=== PATIENT | male | born 1975 | race Caucasian/White ===

== ENCOUNTER 2017-06-03 18:56 | Emergency (ER) | payer OTHER ==
[~2017-06-03] VITALS: Ht 185.4 cm; Wt 107.3 kg
[2017-06-03 19:09] VITALS: TEMP 36.4; Ht 185.4 cm; Wt 107.3 kg
[2017-06-03] MEDS ORDERED: ACETAMINOPHEN 500 MG TAB PO STA (21:17)
[2017-06-03] MEDS ORDERED: COUGH DROP (SUGAR FREE) LOZ 24 LOZ/1 BOX LOZ STA (21:17)
[2017-06-03] MEDS ORDERED: IBUPROFEN 600 MG TAB PO STA (21:17)
[2017-06-03] MEDS ORDERED: ALBUT/IPRATROP 3MG/0.5MG NEB 3 ML VIAL INH STA (21:17)
--- NOTE | 2017-06-03 21:20 | EMERGENCY ROOM VISIT NOTE ---
History Report prepared by Ish: Cristobal Gabriel Under the Supervision of: Dr. Honorio Patterson M.D. First contact with patient: 20:56 Chief Complaint: COUGH Stated Complaint: COUGH, TIGHT IN CHEST Nursing Triage Summary: PT complains of cough since yesterday. Denies any other symptoms. History of Present Illness The patient is a 41 year old white male with a past medical history of bronchitis who presents to the ED with a cc of persistent chest pain beginning yesterday. Positive cough with green mucous. Negative calf pain. He states that the pain has been constant. The patient says that his cough is the worst in the morning. He states that he has not had any recent long travels, and has no history of clots in the legs or lungs. He has no chronic medical problems, and has no surgical history. The patient states that he chews tobacco. Source of History: patient Onset: Yesterday Position: chest Quality: other (pain) Timing: constant, other (persistent) Associated Symptoms: + cough Note: Negative calf pain. Review of Systems See HPI for pertinent positives and negatives. A total of ten systems were reviewed and were otherwise negative. Past Medical & Surgical Medical Problems: (1) Bronchitis (2) No chronic diseases present Family History No pertinent family history Social History Smoking Status: Former Smoker Smokeless Tobacco Use: Yes Marital Status: Housing Status: lives with family Current/Historical Medications No Active Prescriptions or Reported Meds Allergies Coded Allergies: No Known Allergies (Unverified , 06/03/17) Physical Exam Vital Signs Date Time Temp Pulse Resp B/P (MAP) Pulse Ox O2 Delivery O2 Flow Rate FiO2 06/03/17 22:33 78 20 144/86 98 06/03/17 19:09 36.4 70 16 145/91 97 Room Air Physical Exam GENERAL: Awake, alert, well-appearing, NAD HENT: Normocephalic, atraumatic. Poor dentition. EYES: Normal conjunctiva. Sclera non-icteric. NECK: Supple. No nuchal rigidity. FROM. RESPIRATORY: Scant wheezes throughout, no rhonchi, crackles CARDIAC: RRR, no MRG ABDOMEN: Soft, NTND, BS+ MSK: No chest wall TTP, no LE swelling or edema, no calf pain NEURO: GCS 15, CN 2-12 intact, moves all 4s on command SKIN: No rash or jaundice noted. Medical Decision & Procedures ER Provider Diagnostic Interpretation: X-ray: Per my interpretation, radiologist review. SINGLE VIEW CHEST CLINICAL HISTORY: Dyspnea. FINDINGS: An AP, portable, upright chest radiograph is obtained. No prior studies are available for comparison at the time of dictation. The examination is degraded by portable technique and patient rotation. The cardiomediastinal silhouette is unremarkable. The lungs and pleural spaces are clear. No pneumothorax is seen. The bony thorax is grossly intact. IMPRESSION: No active disease in the chest. Electronically signed by: Oscar Méndez M.D. 06/03/2017 9:40 PM Dictated Date/Time: 06/03/2017 9:39 PM Medications Administered Medications (Trade) Dose Ordered Sig/Fouzia Route Start Time Stop Time Status Last Admin Dose Admin Acetaminophen (Tylenol Tab) 1,000 mg NOW STAT PO 06/03/17 21:17 06/03/17 21:19 DC 06/03/17 21:34 1,000 MG Albuterol/ Ipratropium (Duoneb) 3 ml NOW STAT INH 06/03/17 21:17 06/03/17 21:19 DC 06/03/17 21:35 3 ML Ibuprofen (Motrin Tab) 600 mg NOW STAT PO 06/03/17 21:17 06/03/17 21:19 DC 06/03/17 21:34 600 MG Menthol ([place]) 1 [place] NOW STAT [place] 06/03/17 21:17 06/03/17 21:20 DC 06/03/17 21:35 1 [place] ECG Indication: chest pain Rate (beats per minute): 84 Rhythm: normal sinus Findings: Q waves (V1), other (normal intervals, right axis deviation, no other STS changes or TWI) Change: Patient's electrocardiogram interpreted by me. ED Course 2113: The patient was evaluated in room A12B. A complete history and physical exam was performed. Medical Decision The patient is a 41 year old white male with a past medical history of bronchitis who presents to the ED with a cc of persistent chest pain beginning yesterday. Positive cough with green mucous. Negative calf pain. Differential diagnosis: Etiologies such as cardiac ischemia, aortic dissection, pulmonary embolism, pneumonia, pneumothorax, musculoskeletal, infections, pericarditis, myocarditis , esophageal rupture, gastrointestinal, as well as others were entertained. Patient was seen and evaluated the bedside. Patient did complain of some chest discomfort and some cough with productive sputum. Patient does chew tobacco. Patient denies any exertional symptoms denies any shortness of breath a prior history of DVT or PE. Patient has not had a flu shot. Patient chest x-ray was negative acute. Patient's EKG is of a possible Q-wave in V1 however not in contiguous leads. Given his lack of exertional symptoms young age this is likely to be ACS. Do not believe that the patient would benefit from any blood work at this time. The patient did ambulate without any exertional symptoms which again makes me less likely to believe that this is ACS. This does sound more infectious in nature. Patient was counseled on tobacco cessation. Patient was told to continue [id number] type treatments for his likely bronchitis. PERC 0, less likely PE. Patient was deemed suitable for outpatient follow-up and discharge. Patient was given strict follow-up, discharge, and return precautions. All questions were answered. Patient was deemed suitable for outpatient follow-up at this time. Patient agreed with the plan of care and was safely discharged home. The chart was completed utilizing [employer] Speech voice recognition software. Grammatical errors, random word insertions, pronoun errors, and incomplete sentences are an occasional consequence of this system due to software limitations, ambient noise, and hardware issues. Any formal questions or concerns about the content, text, or information contained within the body of this dictation should be directly addressed to the physician for clarification. Medication Reconcilliation Current Medication List: was personally reviewed by me Blood Pressure Screening Patient's blood pressure: Elevated blood pressure Blood pressure disposition: Elevated BP felt to be situational Impression Primary Impression: Cough Additional Impressions: Acute bronchitis Encounter for smoking cessation counseling Scribe Attestation The scribe's documentation has been prepared under my direction and personally reviewed by me in its entirety. I confirm that the note above accurately reflects all work, treatment, procedures, and medical decision making performed by me. Departure Information Dispostion Home / Self-Care Prescriptions No Active Prescriptions or Reported Meds Referrals No Doctor, Assigned (PCP) Patient Instructions Bronchitis Acute Dc, My [facility] Additional Instructions Please return to the emergency department if you have worsening or recurrent symptoms not amenable to at-home treatment. Please call for a follow-up appointment with her primary care physician. Please take your medications as prescribed. If you have other concerns and/or complaints please feel free to also call your primary care physician's office or return the ED for further evaluation, management, and treatment. Please consider avoiding tobacco. You may take 600 mg Ibuprofen every 6 hours as needed for pain with food for no more than 2 consecutive days. You may take tylenol 1000 mg every 6 hours as needed for pain. You may take motrin and tylenol separately or at the same time. Take your medications as prescribed. You have been examined and treated today on an emergency basis only. This is not a substitute for, or an effort to provide, complete comprehensive medical care. It is impossible to recognize and treat all injuries or illnesses in a single emergency department visit. It is therefore important that you follow up closely with [facility], your PCP, and/or your specialist(s). Call as soon as possible for an appointment. Thank you for your time and consideration. I look forward to speaking with you again soon. Please don't hesitate to call us if you have any questions. Problem Qualifiers Additional Impressions: Acute bronchitis Bronchitis organism: unspecified organism Qualified Codes: J20.9 - Acute bronchitis, unspecified
--- NOTE | 2017-06-03 21:41 | DIAGNOSTIC IMAGING REPORT ---
SINGLE VIEW CHEST CLINICAL HISTORY: Dyspnea. FINDINGS: An AP, portable, upright chest radiograph is obtained. No prior studies are available for comparison at the time of dictation. The examination is degraded by portable technique and patient rotation. The cardiomediastinal silhouette is unremarkable. The lungs and pleural spaces are clear. No pneumothorax is seen. The bony thorax is grossly intact. IMPRESSION: No active disease in the chest. Electronically signed by: Oscar Méndez M.D. 06/03/2017 9:40 PM Dictated Date/Time: 06/03/2017 9:39 PM
[2017-06-03 22:33] VITALS: BP 144/86; PULSE 78; O2SAT 98
== END 2017-06-03 22:36 | disposition home or self-care (01) ==
LOC: C.EDB 18:58 → C.EDA 22:36
DX: J20.9 Acute bronchitis, unspecified (principal); R06.00 Dyspnea, unspecified; F17.220 Nicotine dependence, chewing tobacco, uncomplicated